=== PATIENT | male | born 1950 | race Caucasian/White ===

== ENCOUNTER → 2019-01-31 | Outpatient (CLI) | payer OTHER, BC | LOC: MRI 13:44 | DX: M51.16 Intervertebral disc disorders with radiculopathy, lumbar region (principal); M48.07 Spinal stenosis, lumbosacral region; M25.78 Osteophyte, vertebrae; M51.37 Other intervertebral disc degeneration, lumbosacral region; M12.88 Other specific arthropathies, not elsewhere classified, other specified site; K57.30 Diverticulosis of large intestine without perforation or abscess without bleeding ==

== ENCOUNTER → 2019-08-28 | Outpatient (CLI) | payer OTHER, BC ==
[~2019-08-28] VITALS: Ht 177.8 cm; Wt 79.4 kg
[~2019-08-28] MED LIST: ASA81BEC PO; BYSTOLIC 5 MG5 M1 PO; LIPITOR10 MG PO; XALATAN2.5 ML OPHTHALMIC
[2019-08-28 09:32] VITALS: BP 164/92
--- NOTE | 2019-08-28 09:44 | NUR ---
Pain Clinic Assessment: 1. History of Osteoarthritis: PER PT-NO History of Rheumatoid Arthritis: NONE 2. Height: 5 ft. 10 in. 177.8 cm. Weight: 175.0 lb. oz. 79.380 kg. Patient's BMI: 25.1 3. Vital Signs: BP: 164/92 Pulse: 74 Resp: 16 Temp: 02 Sat: 100 ECG Mon: 4. Pain Intensity: 7 5. Fall Risk: Dizziness: N Needs help standing or walking: N Fallen in the last 3 months: N Fall risk comments: 6. Patient on Blood Thinner: None 7. History of Hypertension: Y 8. Opioid Therapy greater than 6 weeks: Opiate Contract Signed: 9. Risk Assessment Tool Provided: LOW 10. Functional Assessment Tool: 11. Recreational Drug Use: Never Drug Type: Tobacco Use: Current Some Day Smoker Tobacco Type: Cigars Amount or Packs/day: 2/WEEK How Many Years: Alcohol Use: Yes Frequency: Daily Quant: 1-2 DRINKS
== END ==
LOC: PAIN 06:54
DX: M48.07 Spinal stenosis, lumbosacral region (principal); M51.16 Intervertebral disc disorders with radiculopathy, lumbar region; M53.3 Sacrococcygeal disorders, not elsewhere classified; M25.78 Osteophyte, vertebrae; M12.88 Other specific arthropathies, not elsewhere classified, other specified site; Z88.2 Allergy status to sulfonamides; Z79.82 Long term (current) use of aspirin; Z79.899 Other long term (current) drug therapy

== ENCOUNTER → 2019-09-11 | Outpatient (CLI) | payer OTHER, BC ==
[~2019-09-11] VITALS: Ht 177.8 cm; Wt 84.3 kg
--- NOTE | ~2019-09-11 | HPC ---
[facility] [place] [address] PAIN MANAGEMENT CONSULTATION Name: AGGIE CORTES Room #: REG [facility] Douglas.#: [id number] Admission: 09/11/19 Attend Phys: Roberto Sanchez MD Discharge: Date of : 50 Report #: [id number] THIS REPORT FOR: //name// CC: Oli Sanchez DATE OF SERVICE: 09/11/2019 Followup visit for lumbar radiculopathy. The patient returns to pain clinic today for repeat epidural injection at L4-L5. He was seen on 08/28/2019 and we had to go through a preauthorization process and returning to the clinic. He has now been approved for the procedure. There have been no significant changes since his last visit. Pain intensity is 8-9 early in the morning. It can diminish as the day goes on, but it is constant and bothersome. Majority of pain is in the low back, radiating down both sides of both legs. IMPRESSION: Lumbar radiculopathy. PROCEDURE: Lumbar epidural injection L4-L5 under fluoroscopic guidance. After informed consent, he was taken to the fluoroscopic suite, placed prone, skin prepped with ChloraPrep. Skin anesthetized at L4-L5 at the level of his severe spinal stenosis. Using biplanar fluoroscopic views, I advanced the needle in the epidural space with loss of resistance technique. There was no blood or CSF aspirated. A 1 mL of Omnipaque was injected. Good spread of dye observed in the epidural space followed by 3 mL of 0.5% lidocaine mixed with 80 mg of triamcinolone. He tolerated the procedure well and was observed for 45 minutes and discharged. Pain score of 0 in the recovery room when he left. Follow up as needed for further injections. By: [id number] Roberto Sanchez MD /nt
[2019-09-11 14:50] VITALS: BP 148/91
--- NOTE | 2019-09-11 15:08 | NUR ---
Pain Clinic Assessment: 1. History of Osteoarthritis: PER PT-NO History of Rheumatoid Arthritis: NONE 2. Height: 5 ft. 10 in. 177.8 cm. Weight: 185.8 lb. oz. 84.278 kg. Patient's BMI: 26.7 3. Vital Signs: BP: 148/91 Pulse: 70 Resp: 16 Temp: 02 Sat: 97 ECG Mon: 4. Pain Intensity: 5 5. Fall Risk: Dizziness: N Needs help standing or walking: N Fallen in the last 3 months: N Fall risk comments: 6. Patient on Blood Thinner: None 7. History of Hypertension: Y 8. Opioid Therapy greater than 6 weeks: N Opiate Contract Signed: 9. Risk Assessment Tool Provided: LOW 10. Functional Assessment Tool: 11. Recreational Drug Use: Never Drug Type: Tobacco Use: Current Some Day Smoker Tobacco Type: Amount or Packs/day: How Many Years: Alcohol Use: Yes Frequency: Quant:
== END | disposition home or self-care (01) ==
LOC: PAIN 07:40
DX: M54.16 Radiculopathy, lumbar region (principal); M48.061 Spinal stenosis, lumbar region without neurogenic claudication; F17.200 Nicotine dependence, unspecified, uncomplicated; Z98.890 Other specified postprocedural states; Z79.899 Other long term (current) drug therapy; Z88.2 Allergy status to sulfonamides; Z79.82 Long term (current) use of aspirin

== ENCOUNTER → 2019-10-06 | Outpatient (CLI) | payer OTHER, BC ==
[~2019-10-06] MED LIST changes: +EFFIENT10 MG PO; +LIPITOR40 MG PO
== END ==
LOC: SJCVCIMAG 13:13
DX: R94.31 Abnormal electrocardiogram [ECG] [EKG] (principal); I25.10 Atherosclerotic heart disease of native coronary artery without angina pectoris; I10 Essential (primary) hypertension; E78.2 Mixed hyperlipidemia; M19.90 Unspecified osteoarthritis, unspecified site; F17.200 Nicotine dependence, unspecified, uncomplicated; M54.42 Lumbago with sciatica, left side; M17.11 Unilateral primary osteoarthritis, right knee; M54.41 Lumbago with sciatica, right side; G89.29 Other chronic pain; Z88.1 Allergy status to other antibiotic agents; Z79.82 Long term (current) use of aspirin; Z79.84 Long term (current) use of oral hypoglycemic drugs; Z79.899 Other long term (current) drug therapy; Z68.25 Body mass index [BMI] 25.0-25.9, adult

== ENCOUNTER 2019-10-09 07:59 | Outpatient (CLI) | payer OTHER, BC ==
[~2019-10-09] VITALS: Ht 177.8 cm; Wt 79.4 kg
[2019-10-09] VITALS (9 sets, daily range): BP systolic 115–169; BP diastolic 62–91
[~2019-10-09 07:59] MED LIST changes: -EFFIENT10 MG PO; -LIPITOR40 MG PO
[2019-10-09 08:39] LABS: HEMATOCRIT 44.8 % (42.0-52.0); HEMOGLOBIN 15.3 gm/dL (14.0-18.0); MCH 33.3 pg (26.0-34.0); MCHC 34.2 g/dL (28.0-37.0); MCV 97.3 fL (80.0-100.0); RBC 4.6 mil/uL (4.50-6.00); RDW 12.6 % (10.5-14.5); WBC 5.4 thou/uL (4.0-11.0)
[2019-10-09 08:51] LABS: ANION GAP 8 mmol/L (7-16); BUN 12 mg/dL (7-18); CALCIUM 9.3 mg/dL (8.5-10.1); CHLORIDE 99 mmol/L (98-107); CO2 29 mmol/L (21-32); CREATININE 0.9 mg/dL (0.7-1.3); GLUCOSE 104 mg/dL (74-106); POTASSIUM 3.9 mmol/L (3.5-5.1); SODIUM 136 mmol/L (136-145)
--- NOTE | 2019-10-09 11:09 | NUR ---
PT TO HAVE ARTERIAL SHEATH PULLED APPROX 1235 AND THEN MANUAL PRESSURE HELD.
--- NOTE | 2019-10-09 12:03 | CATHLAB ---
[facility] [address] [place] [address] INVASIVE PROCEDURE REPORT Name: AGGIE CORTES Room #: REG [facility]#: [id number] Admission: 10/09/19 Attend Phys: Vasile Sierra MD Discharge: Date of : 50 Report #: [id number] THIS REPORT FOR: //name// APPROVED REPORT Study performed: 10/09/2019 09:15:40 Patient Details Patient Status: Out-Patient Room #: The patient is a 69 year-old male Event Personnel Vasile Sierra Occupational Therapy Instructor, Kimberley Villegas RN RN, Romy Leger RTMilton Vuong David Monitor Procedures Performed Left Heart Cath w/or w/o Coronaries [id number] [facility] Place w/wo Plasty Single LAD [id number] Indication Dyspnea, Positive stress test, Chest pain Risk Factors Family History, Hypercholesterolemia, Coronary Artery DiseaseHypertension Procedure Narrative The Right Groin^ was infiltrated with 1% Lidocaine subcutaneous anesthesia. A PINNACLE 4FR Sheath #[id number] sheath was inserted into the RFA^. Coronary angiography was performed using coronary diagnostic catheters. The right coronary system was accessed and visualized with a JR4 catheter. The left coronary system was accessed and visualized with a JL4 catheter. The left ventricle was accessed and visualized with a PIGTAIL catheter. Left ventricular/Aortic Valve gradient assessed via catheter pullback. Left ventriculogram was performed in 30 degree projection. Hemostasis was obtained with manual pressure following sheath removal without any complications. Intraoperative Conscious Sedation Sedation start time: 9.49 Case end Time: 10.41 Fentanyl 50 mcg Versed 1 mg Fluoro Time: 14.51 minutes [facility] [place] [address] INVASIVE PROCEDURE REPORT Name: AGGIE CORTES Room #: REG [facility]#: [id number] Admission: 10/09/19 Attend Phys: Vasile Sierra MD Discharge: Date of : 50 Report #: [id number] Dose: DAP 9921 cGycm2 1429 mGy Contrast Type and Amount: OMNI-190 Coronary Angiography The patient's coronary anatomy is right dominant. Diagnostic Cath Left Main This is a large caliber vessel, patent with no flow-limiting lesions. LAD This is a moderate size caliber vessel with a severe stenosis in the proximal segment, 95%. The distal segment has mild diffuse disease. Diagonal 1 This is a patent vessel, with no flow-limiting lesions. Circumflex This is a patent vessel, with no flow-limiting lesions. OM1 This is a patent vessel, with no flow-limiting lesions. Right Coronary The RCA is a dominant vessel with a mild to moderate stenosis in the proximal segment, 30-40%. This area is calcified. R PDA This is a moderate size caliber vessel, patent with no flow-limiting lesions. RPLV There is a mild stenosis in the proximal segment, 30%. Ramus This is a moderate size caliber vessel, with mild to moderate disease in the proximal segment, 30-40%. Left Ventriculography The left ventricle is normal in size with normal contractility. The left ventricular ejection fraction is estimated to be 55-60%. Hemodynamics The aortic pressure is 158/77 mmHg with a mean of 50 mmHg. The left ventricular pressure is 178/15 mmHg with a mean of mmHg. The left ventricular end diastolic pressure is 31 mmHg. There was no gradient across the aortic valve upon pullback. Pullback from the left ventricle to the aorta revealed no gradient across the aortic valve. PCI Technique Lesion Percutaneous coronary intervention was performed on the proximal left anterior descending artery segment. The lesion stenosis prior to intervention was 95% with ERIKA 3 flow. A [employer] Gensee Interactive TechnologyTA 6FR XB 3.5 #965011 Guide Catheter was used to engage the ostium. A Luge Wire .014 x 182CM #359106 Interventional Guidewire was used to cross the lesion. [facility] [address] [place] [address] INVASIVE PROCEDURE REPORT Name: AGGIE CORTES Room #: REG [facility]#: [id number] Admission: 10/09/19 Attend Phys: Vasile Sierra MD Discharge: Date of : 50 Report #: [id number] BALLOON DILATION A Balloon catheter Euphora RX 2.5 x 12 #[id number] was inserted and inflated up to 8.00atm for 18seconds. STENT DEPLOYMENT A drug-eluting stent RESOLUTE DARLING RX 2.5 X 12 #[id number] was inserted and inflated up to 12.00atm for 24seconds. POST STENT DEPLOYMENT BALLOON DILATION A Balloon catheter Euphora NC RX 2.75 x 8 #[id number] was inserted and inflated up to 14.00atm for 15seconds. Additional Inflation: 16.00atm for 17seconds. Final angiography reveals 0 % stenosis with ERIKA 3 flow. Conclusion 1. Successful insertion of a drug-eluting stent into the proximal LAD stenosis. 2. Mild to moderate disease in the RCA and ramus arteries. 3. Normal LV systolic function. 4. Recommend dual antiplatelet therapy and aggressive risk factor management. <ELECTRONICALLY SIGNED> By: Vasile Sierra MD 10/09/19 1203 02 02 Vasile Sierra MD /INF
--- NOTE | 2019-10-09 12:36 | NUR ---
VERBAL REPORT TO JIMMY KUO ON CCU. SHEATH BEING PULLED AT THIS TIME ABD NANUAL PRESSURE TO BE HELD. PT WILL BE TRANSPORTED TO INPT ROOM AFTER THAT.
--- NOTE | 2019-10-09 16:32 | NUR ---
PT ADMITTED TO ccu 216 AT 1320. RIGHT GROIN DRESSING CDI, NO HEMATOMA NOTED UPON PALPATION, PT LYING IN BED, HOB AT 30 DEGREES, PT VERBALIZED UNDERSTANING OF BEDREST, DRINKING SMALL SIPS OF WATER FROM HOSPITAL PROVIDED JUG, PT SWALLOWS WELL, NO ASPIRATION NOTED, ATE POST CATH MEAL-SANDWHICH AND CHIPS, TAKING SMALL BITES AND CHEWING WELL, NO PROBLEM, PT AMBULATED ROOM AT 1630, STEADY GAIT, GROIN RECHECKED AFTER AMBULATION, DRESSING DCI, NO HEMATOMA.
[2019-10-09 16:52] LABS: CHOLESTEROL 192 mg/dL (<200); HDL CHOLESTEROL 75 mg/dL (>40); LDL CHOLESTEROL 102 mg/dL (<100); TC:HDL 2.6 Ratio (Not establshd); TRIGLYCERIDE 76 mg/dL (<150); VLDL 15 mg/dL (<40)
[2019-10-10 04:20] VITALS: BP 124/62
[2019-10-10 08:06] VITALS: BP 156/84
[2019-10-10] MEDS ORDERED: EFFIENT10 MG PO (08:17)
[2019-10-10] MEDS ORDERED: LIPITOR40 MG PO (08:17)
[2019-10-10 08:24] VITALS: BP 156/84
--- NOTE | 2019-10-10 08:28 | EKG ---
[address] [place] [address] ELECTROCARDIOGRAM REPORT Name: AGGIE CORTES Room #: 216-P [facility]#: [id number] Admission: 10/09/19 Attend Phys: Vasile Sierra MD Discharge: Date of : 50 Report #: [id number] THIS REPORT FOR: //name// [facility] Test Date: 2019-10-09 Test Time: 11:48:24 Pat Name: AGGIE CORTES Department: Room: Gender: Filling Station Attendant: Janny LOU : 1950 Requested By: Vasile Sierra Order Number: [id number] MD: Wayne Jeffers Measurements Intervals [place] Rate: 57 P: 8 [place]: 160 QRS: 25 QRSD: 88 T: -6 QT: 450 QTc: 439 Interpretive Statements Sinus bradycardia Otherwise normal tracing No previous ECG available for comparison Electronically Signed On 10-10-2019 8:28:14 STORAGE SOLUTIONS ARCHITECT by Wayne Jeffers [email or web address] <ELECTRONICALLY SIGNED> By: Wayne Jeffers MD, [facility] 10/10/19 0828 1148 1148 Wayne Jeffers MD, FACC /EPI
--- NOTE | 2019-10-10 08:40 | EKG ---
[address] [address] ELECTROCARDIOGRAM REPORT Name: AGGIE CORTES Room #: 216-[facility]#: [id number] Admission: 10/09/19 Attend Phys: Vasile Sierra MD Discharge: Date of : 50 Report #: [id number] THIS REPORT FOR: //name// [facility] Test Date: 2019-10-10 Test Time: 07:37:20 Pat Name: AGGIE CORTES Department: Room: 216 Gender: M [employer] Animal Caretaker: CYNTHIA : 1950 Requested By: Vasile Sierra Order Number: [id number] MD: Wayne Jeffers Measurements Intervals [place] Rate: 57 P: 7 NV: 166 QRS: 11 QRSD: 87 T: -8 QT: 435 QTc: 424 Interpretive Statements Sinus rhythm Borderline T abnormalities No previous ECG available for comparison Electronically Signed On 10-10-2019 8:39:46 ACTIVITIES COUNSELOR by Wayne Jeffers [email or web address] <ELECTRONICALLY SIGNED> By: Wayne Jeffers MD, [facility] 10/10/19 0839 0737 0737 Wayne Jeffers MD, FACC /EPI
--- NOTE | 2019-10-10 10:41 | NUR ---
ASSUMED CARE PT SHIFT CHANGE. ASSESSMENT CHARTED. MEDS GIVEN PER NOV. PT REFUSED BYSTOLIC AND ASPRIRIN. PREFERS TO TAKE FROM OWN SUPPLY WHEN DISCHARGED HOME. RIGHT GROIN SITE CDI, NO HEMATOMA, BRUISING NOTED AROUND AREA. PT DENIES PAIN, CP, OR SOB. O2 SATS WNL ON ROOM AIR. DC ORDERS ACKNOWLEDGED AND IMPLEMENTED. DC PAPERWORK DISCUSSED WITH PT, COMMUNICATES UNDERSTANDING. PT LEFT UNIT WITH ALL BELONGINGS.
--- NOTE | 2019-10-17 08:15 | D ---
[facility] [place] [address] [place] [address] DISCHARGE SUMMARY Name: AGGIE CORTES Room #: DEP GATO Sneed#: [id number] Admission: 10/09/19 Attend Phys: Vasile Sierra MD Discharge: 10/10/19 Date of : 50 Report #: [id number] THIS REPORT FOR: //name// CC: Vasile Salazar DATE OF SERVICE: 10/10/2019 FINAL DIAGNOSES: 1. Coronary artery disease/silent ischemia, status post percutaneous coronary intervention. 2. History of coronary artery calcium. 3. Strong family history for premature coronary artery disease. 4. Hypertension. 5. Hypercholesterolemia. HOSPITAL COURSE: Please see the original H and P for full details. The patient underwent a stress test, markedly abnormal. He presents with silent ischemia. Please see the cardiac catheterization report for full details. He was found to have [id number] disease in the ramus artery and RCA. There was a severe obstruction in the proximal LAD, undergoing placement of a drug-eluting stent. He has remained hemodynamically stable overnight. He will be discharged home on aspirin once a day, Effient 10 mg daily. Lipitor dose will be increased to 40 mg daily and he will continue with Bystolic. He is scheduled for followup in the office in 2 weeks. <ELECTRONICALLY SIGNED> By: Vasile Sierra MD 10/17/19 0815 0811 0956 Vasile Sierra MD /alvin
== END 2019-10-10 10:30 | disposition home or self-care (01) ==
LOC: CATH 07:59 → 2N 13:39 → CATH 10-10 10:30
PROVIDERS: Internal Medicine Cardiovascular Disease
DX: R07.9 Chest pain, unspecified (principal); R94.39 Abnormal result of other cardiovascular function study; I25.10 Atherosclerotic heart disease of native coronary artery without angina pectoris; I10 Essential (primary) hypertension; E78.00 Pure hypercholesterolemia, unspecified; Z82.49 Family history of ischemic heart disease and other diseases of the circulatory system; M17.0 Bilateral primary osteoarthritis of knee; Z88.2 Allergy status to sulfonamides; Z79.82 Long term (current) use of aspirin; Z79.899 Other long term (current) drug therapy
CPT/HCPCS: 10081

== ENCOUNTER → 2019-10-24 | Outpatient (CLI) | payer OTHER, BC ==
[~2019-10-24] MED LIST changes: +EFFIENT10 MG PO; +LIPITOR40 MG PO
== END ==
LOC: SJCVC 15:54
DX: I25.10 Atherosclerotic heart disease of native coronary artery without angina pectoris (principal); I10 Essential (primary) hypertension; E78.00 Pure hypercholesterolemia, unspecified; Z79.82 Long term (current) use of aspirin; Z79.899 Other long term (current) drug therapy; M19.90 Unspecified osteoarthritis, unspecified site

== ENCOUNTER → 2020-02-26 | Outpatient (CLI) | payer OTHER, BC | LOC: SJCVC 11:05 | DX: E78.2 Mixed hyperlipidemia (principal); E78.00 Pure hypercholesterolemia, unspecified ==

== ENCOUNTER → 2020-03-04 | Outpatient (CLI) | payer OTHER, BC | LOC: SJCVC 11:11 | PROVIDERS: ATTEND Internal Medicine Cardiovascular Disease | DX: I25.10 Atherosclerotic heart disease of native coronary artery without angina pectoris (principal); I10 Essential (primary) hypertension; E78.00 Pure hypercholesterolemia, unspecified; Z79.899 Other long term (current) drug therapy ==

== ENCOUNTER → 2020-07-31 | Outpatient (CLI) | payer OTHER, BC | LOC: LAB 07:56 | PROVIDERS: ATTEND Orthopaedic Surgery | DX: Z01.812 Encounter for preprocedural laboratory examination (principal); Z20.828 Contact with and (suspected) exposure to other viral communicable diseases ==

== ENCOUNTER 2020-08-05 09:34 | Inpatient (IN) | payer OTHER, BC ==
[2020-07-24 11:48] LABS: HEMATOCRIT 43.7 % (42.0-52.0); HEMOGLOBIN 14.7 gm/dL (14.0-18.0); MCH 32.3 pg (26.0-34.0); MCHC 33.6 g/dL (28.0-37.0); MCV 96.1 fL (80.0-100.0); RBC 4.55 mil/uL (4.50-6.00); RDW 12.4 % (10.5-14.5); WBC 6.3 thou/uL (4.0-11.0)
[2020-07-24 12:01] LABS: PROTIME 10.7 Seconds (9.3-11.4)
[2020-07-24 12:09] LABS: URINE BILIRUBIN NEGATIVE (Negative); URINE BLOOD NEGATIVE (Negative); URINE CLARITY CLEAR; URINE COLOR YELLOW; URINE GLUCOSE-RANDOM* NEGATIVE (Negative); URINE KETONES NEGATIVE (Negative); URINE LEUKOCYTES-REFLEX NEGATIVE (Negative); URINE NITRITE-REFLEX NEGATIVE (Negative); URINE PROTEIN (DIPSTICK) NEGATIVE (Negative); URINE SPECIFIC GRAVITY 1.025 (1.005-1.035); URINE UROBILINOGEN 0.2 E.U./dl (0.2-1.0)
[2020-07-24 12:20] LABS: ALBUMIN 3.8 g/dL (3.4-5.0); CALCIUM 8.7 mg/dL (8.5-10.1); CREATININE 0.9 mg/dL (0.7-1.3)
[~2020-08-05] VITALS: Ht 177.8 cm; Wt 79.4 kg
--- NOTE | ~2020-08-05 | O ---
[facility] [place] [address] OPERATIVE REPORT Name: AGGIE CORTES Room #: 434-P ADM IN M.R.#: [id number] Admission: 08/05/20 Attend Phys: Chaz Crowder MD Discharge: Date of : 50 Report #: [id number] THIS REPORT FOR: cc: Oli Salazar MD,Oli Crowder,Chaz Patel MD ~ CC: Oli Crowder DATE OF SERVICE: 08/05/2020 PREOPERATIVE DIAGNOSIS: Right knee osteoarthritis. POSTOPERATIVE DIAGNOSIS: Right knee osteoarthritis. PROCEDURE: Right total knee arthroplasty using Navio robotic assistance. SURGEON: Chaz Crowder MD. POWER REACTOR SUPERVISOR: Jesi Gaitan PA-C. INDICATIONS FOR POWER REACTOR SUPERVISOR: Throughout the case, extensive retraction and manipulation of the knee was required. This was afforded to me by my preschool assistant teacher. ANESTHESIA: LMA with an adductor canal block. IMPLANTS: Contreras and Nephew size 5 Journey II BCS cobalt chrome femur, size 5 tibia, size 11 polyethylene and size 35 patella. TOURNIQUET TIME: 46 minutes. ESTIMATED BLOOD LOSS: 25 mL. COMPLICATIONS: None. SPECIMENS: None. CONDITION UPON LEAVING THE OPERATING ROOM: Stable. INDICATIONS FOR PROCEDURE: The patient is a 69-year-old gentleman with right knee osteoarthritis. He had failed conservative measures for this and after discussion with him, he elected for right total knee arthroplasty. DESCRIPTION OF PROCEDURE: Risks, benefits, alternatives, complications were discussed in detail with the patient including but not limited to risk of anesthesia, risk of damage to nerves, arteries, blood vessels, risk for [facility] [address] [place] [address] OPERATIVE REPORT Name: AGGIE CORTES Room #: 434-P [facility].#: [id number] Admission: 08/05/20 Attend Phys: Chaz Crowder MD Discharge: Date of : 50 Report #: [id number] infection, bleeding, risk for continued knee pain, need for reoperation. Informed consent was obtained from the patient. Right knee was appropriately marked in the preoperative holding area. IV Ancef was given for preoperative antibiotics. He was brought to the operating room and placed in supine position on operating room table. LMA anesthesia was induced without complication. Tourniquet was placed on the right thigh. Right lower extremity was prepped and draped in normal sterile fashion. Timeout was performed properly identifying the patient and procedure as well as the instrumentation and implants. All in the operating room were in agreement. Right lower extremity was exsanguinated, tourniquet was inflated. Tourniquet time was 46 minutes. Standard midline approach to the knee was made with 10 blade through the skin. Dissection was taken down sharply to the fascia and deep flaps were developed medially and laterally. Fresh 10 blade was used to make a medial parapatellar arthrotomy and the knee was inspected. There was severe tricompartmental osteoarthritis. ACL and PCL were removed sharply. Reference pins were placed in the femur and the tibia. The knee was then digitally mapped using the AlphaBoost robotic system. Intraoperative plan was made and we sized the size 5 femur with a size 5 tibia and a 10 spacer. After acceptance of the intraoperative plan, the distal femoral cut was made with a Navio bur. Distal femoral cutting block was pinned in place and the chamfer cuts were made. Attention was turned to the tibia and remainder of the menisci removed with Bovie cautery. Tibial resection guide was pinned in place using the Navio for placement and tibial resection was made. Flexion and extension gaps were then checked and found to have good balance in flexion and extension both medially and laterally. Tibia was sized, found to be a size 5. A size 5 tibial trial was placed, pinned and punched. A size 5 femoral trial was placed and the box cut was made. This was then trialed with a size 10 and then a size 11 polyethylene and size 11 polyethylene demonstrated 1 mm of laxity medially and laterally throughout range of motion of the knee. A 9 mm was resected from the posterior surface of the patella and a size 35 patellar trial button was placed. Knee was taken through range of motion, found to be stable, found to have good patellar tracking. Trial components were removed. Bony ends were thoroughly irrigated with normal saline. A final size 5 tibia, size 5 Journey II BCS cobalt chrome femur and a size 35 patella were cemented in place using standard cementation techniques. While the cement cured, a periarticular injection consisting of morphine, ropivacaine, epinephrine and Toradol was placed around the knee joint capsule. After the cement cured, the tourniquet was deflated. Hemostasis was obtained with Bovie cautery. A final size 11 polyethylene was placed. A gram of vancomycin was placed deep in the joint. The fascia was closed with 0 Vicryl, skin was closed with 2-0 Vicryl, 3-0 Monocryl. Dermabond and a JOSLYN dressing was applied. The patient tolerated this procedure well and went to the recovery room under care of anesthesia postoperatively. By: 0707 [id number] Chaz Crowder MD /alvin
[2020-08-05 10:25] VITALS: BP 153/99
[2020-08-05 14:37] VITALS: BP 160/96
--- NOTE | 2020-08-05 17:01 | NUR ---
PATIENT ADMIITED TO ROOM 434 FROM POST OP HAD RIGHT TOTAL KNEE REPLACEMENT. PT ALERT XS 4 PLEASANT AND COOPERATIVE WITH CARE. FLUIDS INFUSING ORDERED. GIVEN PRN PAIN MED AND ZOFRAN AND THEN WANTED BOX MEAL SPRITE AND YOGURT AND JELLO. HAS [employer] DRESSING INTACT TO RIGHT KNEE. POLAR PACL, SCD'S AND MENDOZA MCKEON ON. AT BEDSIDE.
[2020-08-05 19:06] VITALS: BP 123/73
[2020-08-05 23:00] VITALS: BP 123/73
[2020-08-06 04:08] VITALS: BP 102/60
--- NOTE | 2020-08-06 06:26 | NUR ---
PT AOX4. PT DENIES PAIN AND SOB. PT HAS PRN PO NORCO Q4HR AND PRN PO APAP Q4HR AVAILABLE. PT REMAINS ON ROOM AIR. PT AMBULATED X1 2FEET WITH STANDBY ASSIST AND WALKER. PT VOIDING PER URINAL, TOLERATING PO INTAKE OF FLUIDS AND REGULAR DIET. PT REMAINED IN BED THROUGHOUT SHIFT, FREQUENT REPOSITIONING ENCOURAGED. PT NOTED TO SHIFT INDEPENDENTLY WHILE IN BED. PT ENCOURAGED TO NOTIFY STAFF FOR ALL NEEDS, CALL LIGHT WITHIN REACH, BED ALARM ON, BED IN LOWEST POSITION, FREQUENT MONITORING WILL CONTINUE.
[2020-08-06 07:30] VITALS: BP 114/69
--- NOTE | 2020-08-06 08:23 | NUR ---
pt A & O X 4. PLEASANT MOOD, READY TO GET MOVING WITH PT AND BECOME AMBULATORY. SMOKING CESSATION TEACHING BOWEL SOUNDS HYPOACTIVE LAST bm 08/06 urine output is good with no difficulty pain is well management with protocol
[2020-08-06 11:49] VITALS: BP 114/69
--- NOTE | 2020-08-06 12:07 | NUR ---
Chart reviewed and discussed with the care team. Pt is likely dcing home later today with plans for outpt therapy at [facility]. PT recommends a FWW for home use. Script provided to Provider PLus liafaustino and she has issued it to the pt for dc later today. No other cm interventions indicated. Case closed.
[2020-08-06 12:09] VITALS: BP 114/69
--- NOTE | 2020-08-06 14:30 | NUR ---
PT ASSESSED AT START OF SHIFT. PAIN MINIMAL W/ PAIN MED. UP W/ WALKER AND DOING WELL. WORKED W/ THERAPY AND WAS RELEASED TO DISCHARGE. PT DISCHARGED W/ ALL BELONGINGS AT THIS TIME.
== END 2020-08-06 15:05 | disposition home or self-care (01) | DRG 470 ==
LOC: 4S 09:34 → TBA 09:34 → PRE 11:07 → 4S 14:33
PROVIDERS: ADMIT Orthopaedic Surgery; ATTEND Orthopaedic Surgery
PROC: 0SRC0J9 Replacement of Right Knee Joint with Synthetic Substitute, Cemented, Open Approach (ICD-10-PCS; principal; 2020-08-05)
PROC: 8E0Y0CZ Robotic Assisted Procedure of Lower Extremity, Open Approach (ICD-10-PCS; principal; 2020-08-05)
DX: M17.11 Unilateral primary osteoarthritis, right knee (principal); Z88.2 Allergy status to sulfonamides; Z79.899 Other long term (current) drug therapy
CPT/HCPCS: 10102; 50010; 50101; 50415; 50954; 51130; 51225; 51320; 53000; 53078; 54118; 56527; 56528; 57095; 57103; 57110; 57127; 57180; 58239; 62110; 62900; 64039; 70005

== ENCOUNTER → 2020-09-04 | Outpatient (CLI) | payer OTHER, BC ==
[~2020-09-04] VITALS: Ht 177.8 cm; Wt 80.2 kg
[~2020-09-04] MED LIST changes: +ADVIL200 M3 PO; +COZAAR 25 MG TA25 M2 PO
[2020-09-04 12:30] VITALS: BP 150/22
--- NOTE | 2020-09-04 12:40 | NUR ---
Pain Clinic Assessment: 1. History of Osteoarthritis: PER PT-NO History of Rheumatoid Arthritis: NONE 2. Height: 5 ft. 10 in. 177.8 cm. Weight: 176.8 lb. oz. 80.196 kg. Patient's BMI: 25.4 3. Vital Signs: BP: 150/22 Pulse: 64 Resp: 18 Temp: 02 Sat: 99 ECG Mon: 4. Pain Intensity: 5 5. Fall Risk: Dizziness: N Needs help standing or walking: N Fallen in the last 3 months: N Fall risk comments: 6. Patient on Blood Thinner: None 7. History of Hypertension: Y 8. Opioid Therapy greater than 6 weeks: N Opiate Contract Signed: 9. Risk Assessment Tool Provided: LOW 10. Functional Assessment Tool: 11. Recreational Drug Use: Never Drug Type: Tobacco Use: Never Smoker Tobacco Type: Amount or Packs/day: How Many Years: Alcohol Use: Yes Frequency: Daily Quant: 1-2 GLASSES OF WINE
== END ==
LOC: PAIN
PROVIDERS: ATTEND Anesthesiology Pain Medicine
DX: M54.5 Low back pain (principal); I10 Essential (primary) hypertension; K57.30 Diverticulosis of large intestine without perforation or abscess without bleeding

== ENCOUNTER → 2020-09-23 | Outpatient (CLI) | payer OTHER, BC | LOC: SJCVCIMAG 09-10 12:53 | PROVIDERS: ATTEND Internal Medicine Cardiovascular Disease | DX: I08.3 Combined rheumatic disorders of mitral, aortic and tricuspid valves (principal); I11.9 Hypertensive heart disease without heart failure; I25.10 Atherosclerotic heart disease of native coronary artery without angina pectoris; E78.00 Pure hypercholesterolemia, unspecified; R60.9 Edema, unspecified; M19.90 Unspecified osteoarthritis, unspecified site; E78.5 Hyperlipidemia, unspecified; F17.200 Nicotine dependence, unspecified, uncomplicated; Z88.8 Allergy status to other drugs, medicaments and biological substances; Z96.651 Presence of right artificial knee joint; Z79.82 Long term (current) use of aspirin; Z79.899 Other long term (current) drug therapy; Z82.49 Family history of ischemic heart disease and other diseases of the circulatory system ==

== ENCOUNTER → 2020-09-25 | Outpatient (CLI) | payer OTHER, BC ==
[~2020-09-25] VITALS: Ht 177.8 cm; Wt 79.6 kg
[2020-09-25 13:55] VITALS: BP 142/82
--- NOTE | 2020-09-25 14:02 | NUR ---
Pain Clinic Assessment: 1. History of Osteoarthritis: PER PT-NO History of Rheumatoid Arthritis: NONE 2. Height: 5 ft. 10 in. 177.8 cm. Weight: 175.4 lb. oz. 79.561 kg. Patient's BMI: 25.2 3. Vital Signs: BP: 142/82 Pulse: 78 Resp: 16 Temp: 02 Sat: 99 ECG Mon: 4. Pain Intensity: 5 5. Fall Risk: Dizziness: N Needs help standing or walking: N Fallen in the last 3 months: N Fall risk comments: 6. Patient on Blood Thinner: None 7. History of Hypertension: Y 8. Opioid Therapy greater than 6 weeks: N Opiate Contract Signed: 9. Risk Assessment Tool Provided: LOW 10. Functional Assessment Tool: 11. Recreational Drug Use: Never Drug Type: Tobacco Use: Never Smoker Tobacco Type: Amount or Packs/day: How Many Years: Alcohol Use: Yes Frequency: Daily Quant: 1 TO 2
== END | disposition home or self-care (01) ==
LOC: PAIN 06:54
PROVIDERS: ATTEND Anesthesiology Pain Medicine
DX: M54.16 Radiculopathy, lumbar region (principal); G89.29 Other chronic pain; I10 Essential (primary) hypertension; E78.5 Hyperlipidemia, unspecified; M19.90 Unspecified osteoarthritis, unspecified site; H40.9 Unspecified glaucoma; Z98.890 Other specified postprocedural states; Z79.899 Other long term (current) drug therapy; Z85.828 Personal history of other malignant neoplasm of skin

== ENCOUNTER → 2020-11-20 | Outpatient (CLI) | payer OTHER, BC ==
[~2020-11-20] VITALS: Ht 177.8 cm; Wt 81.6 kg
[2020-11-20 14:12] VITALS: BP 122/79
--- NOTE | 2020-11-20 14:23 | NUR ---
Pain Clinic Assessment: 1. History of Osteoarthritis: PER PT-NO History of Rheumatoid Arthritis: NONE 2. Height: 5 ft. 10 in. 177.8 cm. Weight: 180.0 lb. oz. 81.648 kg. Patient's BMI: 25.8 3. Vital Signs: BP: 122/79 Pulse: 73 Resp: 14 Temp: 02 Sat: 98 ECG Mon: 4. Pain Intensity: 3-4 5. Fall Risk: Dizziness: N Needs help standing or walking: N Fallen in the last 3 months: N Fall risk comments: 6. Patient on Blood Thinner: None 7. History of Hypertension: Y 8. Opioid Therapy greater than 6 weeks: N Opiate Contract Signed: 9. Risk Assessment Tool Provided: LOW 10. Functional Assessment Tool: 11. Recreational Drug Use: Never Drug Type: Tobacco Use: Never Smoker Tobacco Type: Amount or Packs/day: How Many Years: Alcohol Use: Yes Frequency: Quant:
== END | disposition home or self-care (01) ==
LOC: PAIN 06:59
PROVIDERS: ATTEND Anesthesiology Pain Medicine
DX: M54.16 Radiculopathy, lumbar region (principal); G89.29 Other chronic pain; I10 Essential (primary) hypertension; E78.5 Hyperlipidemia, unspecified; M19.90 Unspecified osteoarthritis, unspecified site; H40.9 Unspecified glaucoma; Z98.890 Other specified postprocedural states; Z79.899 Other long term (current) drug therapy; Z85.828 Personal history of other malignant neoplasm of skin; Z98.41 Cataract extraction status, right eye; Z98.42 Cataract extraction status, left eye; Z88.2 Allergy status to sulfonamides

== ENCOUNTER → 2021-02-05 | Outpatient (CLI) | payer OTHER, BC ==
[~2021-02-05] VITALS: Ht 177.8 cm; Wt 83.2 kg
[2021-02-05 08:32] VITALS: BP 134/84
--- NOTE | 2021-02-05 08:44 | NUR ---
Pain Clinic Assessment: 1. History of Osteoarthritis: PER PT-NO History of Rheumatoid Arthritis: NONE 2. Height: 5 ft. 10 in. 177.8 cm. Weight: 183.4 lb. oz. 83.190 kg. Patient's BMI: 26.3 3. Vital Signs: BP: 134/84 Pulse: 62 Resp: 16 Temp: 02 Sat: 98 ECG Mon: 4. Pain Intensity: 6 5. Fall Risk: Dizziness: N Needs help standing or walking: N Fallen in the last 3 months: N Fall risk comments: 6. Patient on Blood Thinner: None 7. History of Hypertension: Y 8. Opioid Therapy greater than 6 weeks: N Opiate Contract Signed: 9. Risk Assessment Tool Provided: LOW 10. Functional Assessment Tool: 11. Recreational Drug Use: Never Drug Type: Tobacco Use: Never Smoker Tobacco Type: Amount or Packs/day: How Many Years: Alcohol Use: Yes Frequency: Quant:
== END | disposition home or self-care (01) ==
LOC: PAIN 06:58
PROVIDERS: ATTEND Anesthesiology Pain Medicine
DX: M51.17 Intervertebral disc disorders with radiculopathy, lumbosacral region (principal); M51.16 Intervertebral disc disorders with radiculopathy, lumbar region; M48.061 Spinal stenosis, lumbar region without neurogenic claudication; M47.26 Other spondylosis with radiculopathy, lumbar region; G89.29 Other chronic pain; I10 Essential (primary) hypertension; E78.5 Hyperlipidemia, unspecified; H40.9 Unspecified glaucoma; Z98.890 Other specified postprocedural states; Z79.899 Other long term (current) drug therapy; Z85.828 Personal history of other malignant neoplasm of skin; Z98.41 Cataract extraction status, right eye; Z98.42 Cataract extraction status, left eye; Z88.2 Allergy status to sulfonamides

== ENCOUNTER → 2021-02-17 | Outpatient (CLI) | payer OTHER, BC | LOC: SJCVCIMAG 07:18 | PROVIDERS: ATTEND Internal Medicine Cardiovascular Disease | DX: R00.0 Tachycardia, unspecified (principal); I49.3 Ventricular premature depolarization; R06.00 Dyspnea, unspecified; R53.83 Other fatigue; I25.119 Atherosclerotic heart disease of native coronary artery with unspecified angina pectoris; I10 Essential (primary) hypertension; E78.00 Pure hypercholesterolemia, unspecified; R60.9 Edema, unspecified; M19.90 Unspecified osteoarthritis, unspecified site; F17.200 Nicotine dependence, unspecified, uncomplicated; Z98.61 Coronary angioplasty status; Z88.2 Allergy status to sulfonamides; Z79.82 Long term (current) use of aspirin; Z79.899 Other long term (current) drug therapy ==

== ENCOUNTER → 2021-05-02 | Outpatient (CLI) | payer OTHER, BC ==
[~2021-05-02] VITALS: Ht 177.8 cm; Wt 83.6 kg
[2021-05-02 08:01] VITALS: BP 152/98
--- NOTE | 2021-05-02 08:13 | NUR ---
Pain Clinic Assessment: 1. History of Osteoarthritis: PER PT-NO History of Rheumatoid Arthritis: NONE 2. Height: 5 ft. 10 in. 177.8 cm. Weight: 184.4 lb. oz. 83.643 kg. Patient's BMI: 26.5 3. Vital Signs: BP: 152/98 Pulse: 63 Resp: 14 Temp: 02 Sat: 98 ECG Mon: 4. Pain Intensity: 5 5. Fall Risk: Dizziness: N Needs help standing or walking: N Fallen in the last 3 months: N Fall risk comments: 6. Patient on Blood Thinner: None 7. History of Hypertension: Y 8. Opioid Therapy greater than 6 weeks: N Opiate Contract Signed: 9. Risk Assessment Tool Provided: LOW 10. Functional Assessment Tool: 11. Recreational Drug Use: Never Drug Type: Tobacco Use: Never Smoker Tobacco Type: Amount or Packs/day: How Many Years: Alcohol Use: Yes Frequency: Daily Quant: 1
== END | disposition home or self-care (01) ==
LOC: PAIN 07:00
PROVIDERS: ATTEND Anesthesiology Pain Medicine
DX: M54.16 Radiculopathy, lumbar region (principal); G89.29 Other chronic pain; I10 Essential (primary) hypertension; I25.10 Atherosclerotic heart disease of native coronary artery without angina pectoris; E78.00 Pure hypercholesterolemia, unspecified; E78.5 Hyperlipidemia, unspecified; H40.9 Unspecified glaucoma; F17.210 Nicotine dependence, cigarettes, uncomplicated; Z98.890 Other specified postprocedural states; Z79.899 Other long term (current) drug therapy; M19.90 Unspecified osteoarthritis, unspecified site; Z85.828 Personal history of other malignant neoplasm of skin; Z98.41 Cataract extraction status, right eye; Z98.42 Cataract extraction status, left eye

== ENCOUNTER → 2021-08-13 | Outpatient (CLI) | payer OTHER, BC ==
[~2021-08-13] VITALS: Ht 177.8 cm; Wt 83.0 kg
[2021-08-13 08:43] VITALS: BP 121/81
--- NOTE | 2021-08-13 08:54 | NUR ---
Pain Clinic Assessment: 1. History of Osteoarthritis: PER PT-NO History of Rheumatoid Arthritis: NONE 2. Height: 5 ft. 10 in. 177.8 cm. Weight: 183.0 lb. oz. 83.008 kg. Patient's BMI: 26.3 3. Vital Signs: BP: 121/81 Pulse: 70 Resp: 16 Temp: 02 Sat: 98 ECG Mon: 4. Pain Intensity: 5 TO 8(EVENING) 5. Fall Risk: Dizziness: N Needs help standing or walking: N Fallen in the last 3 months: N Fall risk comments: 6. Patient on Blood Thinner: None 7. History of Hypertension: Y 8. Opioid Therapy greater than 6 weeks: N Opiate Contract Signed: 9. Risk Assessment Tool Provided: LOW 10. Functional Assessment Tool: 11. Recreational Drug Use: Never Drug Type: Tobacco Use: Never Smoker Tobacco Type: Amount or Packs/day: How Many Years: Alcohol Use: Yes Frequency: Daily Quant: 1 TO 2 WINE
== END | disposition home or self-care (01) ==
LOC: PAIN 08:32
PROVIDERS: ATTEND Anesthesiology Pain Medicine
DX: M54.16 Radiculopathy, lumbar region (principal); G89.29 Other chronic pain; I10 Essential (primary) hypertension; E78.5 Hyperlipidemia, unspecified; M19.90 Unspecified osteoarthritis, unspecified site; H40.9 Unspecified glaucoma; Z98.890 Other specified postprocedural states; Z79.899 Other long term (current) drug therapy; Z85.828 Personal history of other malignant neoplasm of skin; Z88.2 Allergy status to sulfonamides

== ENCOUNTER → 2021-08-28 | Outpatient (CLI) | payer OTHER, BC | LOC: SJCVC 13:23 | PROVIDERS: ATTEND Internal Medicine Cardiovascular Disease | DX: R00.1 Bradycardia, unspecified (principal); I10 Essential (primary) hypertension; I25.10 Atherosclerotic heart disease of native coronary artery without angina pectoris; E78.00 Pure hypercholesterolemia, unspecified; R60.9 Edema, unspecified; E78.5 Hyperlipidemia, unspecified; Z79.82 Long term (current) use of aspirin; Z79.899 Other long term (current) drug therapy; Z88.2 Allergy status to sulfonamides; Z82.49 Family history of ischemic heart disease and other diseases of the circulatory system; F17.200 Nicotine dependence, unspecified, uncomplicated; Z72.89 Other problems related to lifestyle ==

== ENCOUNTER → 2021-11-14 | Outpatient (CLI) | payer BC ==
[~2021-11-14] VITALS: Ht 177.8 cm; Wt 84.6 kg
[2021-11-14 09:04] VITALS: BP 127/79
--- NOTE | 2021-11-14 09:14 | NUR ---
Pain Clinic Assessment: 1. History of Osteoarthritis: PER PT-NO History of Rheumatoid Arthritis: NONE 2. Height: 5 ft. 10 in. 177.8 cm. Weight: 186.4 lb. oz. 84.551 kg. Patient's BMI: 26.7 3. Vital Signs: BP: 127/79 Pulse: 57 Resp: 14 Temp: 02 Sat: 97 ECG Mon: 4. Pain Intensity: 5 5. Fall Risk: Dizziness: N Needs help standing or walking: N Fallen in the last 3 months: N Fall risk comments: 6. Patient on Blood Thinner: None 7. History of Hypertension: Y 8. Opioid Therapy greater than 6 weeks: N Opiate Contract Signed: 9. Risk Assessment Tool Provided: LOW 10. Functional Assessment Tool: 11. Recreational Drug Use: Never Drug Type: Tobacco Use: Never Smoker Tobacco Type: Amount or Packs/day: How Many Years: Alcohol Use: Yes Frequency: Special Occasions Quant: 1
== END ==
LOC: PAIN 08:09
PROVIDERS: ATTEND Anesthesiology Pain Medicine
DX: G89.29 Other chronic pain (principal); R20.2 Paresthesia of skin; M54.50 Low back pain, unspecified; M79.604 Pain in right leg; M79.605 Pain in left leg; Z79.899 Other long term (current) drug therapy